=== PATIENT | male | born 1980 ===

== ENCOUNTER 2016-12-19 15:19 | Inpatient (IN) | payer OTHER, SELFPAY ==
[2016-12-19] MEDS ORDERED: Sodium Chloride 0.9% 1,000 ML IV STA (15:31)
--- NOTE | 2016-12-19 15:35 | ED PDOC ---
HPI: Abdomen Time Seen by Provider: 12/19/16 15:27 Chief Complaint (Nursing): Abdominal Pain Chief Complaint (Provider): Right Lower Quadrant Abdominal Pain History Per: Patient History/Exam Limitations: no limitations Onset/Duration Of Symptoms: Days (x4 days) Outside of [place] travel?: No Current Symptoms Are (Timing): Still Present Location Of Pain/Discomfort: RLQ Quality Of Discomfort: "Pain" Associated Symptoms: Nausea. denies: Fever, Vomiting, Urinary Symptoms Additional Complaint(s): Magdiel Chinchilla, a 36 year old male, presents to the ED complaining of right lower quadrant abdominal pain associated with nausea x4 days. Denies vomiting, fever, urinary symptoms. PMD: Ravi Richardson Past Medical History Reviewed: Historical Data, Nursing Documentation, Vital Signs Vital Signs: Last Vital Signs Temp 98.2 F 12/19/16 15:23 Pulse 77 12/19/16 15:23 Resp 16 12/19/16 15:23 BP 117/64 12/19/16 15:23 Pulse Ox 98 12/19/16 15:40 - Medical History PMH: No Chronic Diseases - Family History Family History: States: Unknown Family Hx - Immunization History Hx Tetanus Toxoid Vaccination: No Hx Influenza Vaccination: No Hx Pneumococcal Vaccination: No - Home Medications Home Medications: Ambulatory Orders Medication Instructions Recorded oxyCODONE/Acetaminophen [Percocet 1 tab PO QID PRN #10 tab 07/09/14 5/325 mg Tab] Cyclobenzaprine [Cyclobenzaprine 10 mg PO TID #30 tab 01/15/16 HCl] Ibuprofen [Motrin] 600 mg PO Q8 #30 tab 01/15/16 Docusate [Colace] 100 mg PO BID #60 cap 01/22/16 Magnesium Citrate [Good Neighbor 300 ml PO ONCE PRN #1 bottle 01/22/16 Pharmacy Magnesium Citrate] Dicyclomine [Bentyl] 10 mg PO QID PRN #10 cap 02/01/16 Famotidine [Pepcid] 20 mg PO DAILY #20 tab 02/01/16 Docusate [Colace] 100 mg PO BID #14 cap 12/15/16 Naproxen [Naprosyn] 1 tab PO BID PRN #20 tab 12/15/16 - Allergies Allergies/Adverse Reactions: Allergies Allergy/AdvReac Type Severity Reaction Status Date / Time lidocaine Allergy Severe RASH Verified 01/22/16 18:43 Review of Systems ROS Statement: Except As Marked, All Systems Reviewed And Found Negative Constitutional: Negative for: Fever Gastrointestinal: Positive for: Nausea, Abdominal Pain (right lower quadrant abdominal pain). Negative for: Vomiting Genitourinary Male: Negative for: Dysuria, Frequency, Incontinence, Hematuria Physical Exam - Reviewed Nursing Documentation Reviewed: Yes Vital Signs Reviewed: Yes - Physical Exam Appears: Positive for: Non-toxic, No Acute Distress Head Exam: Positive for: ATRAUMATIC, NORMAL INSPECTION, NORMOCEPHALIC Skin: Positive for: Normal Color, Warm, Dry Eye Exam: Positive for: Normal appearance, EOMI, PERRL ENT: Positive for: Normal ENT Inspection Neck: Positive for: Normal, Painless ROM, Supple Cardiovascular/Chest: Positive for: Regular Rate, Rhythm, Chest Non Tender. Negative for: Tachycardia Respiratory: Positive for: Normal Breath Sounds. Negative for: Wheezing, Respiratory Distress Gastrointestinal/Abdominal: Positive for: Bowel Sounds, Soft, Tenderness (right lower quadrant tenderness), Guarding. Negative for: Mass, Rebound Back: Positive for: Normal Inspection. Negative for: L CVA Tenderness, R CVA Tenderness Extremity: Positive for: Normal ROM. Negative for: Tenderness, Deformity, Swelling Neurologic/Psych: Positive for: Alert, Oriented, Gait. Negative for: Motor/ Sensory Deficits - Laboratory Results Result Diagrams: 12/19/16 16:00 12/19/16 16:00 - ECG O2 Sat by Pulse Oximetry: 98 (RA) Pulse Ox Interpretation: Normal Medical Decision Making Medical Decision Makin Initial Impression: 36 year old male presenting with right lower quadrant abdominal pain Initial Plan: * CT ABD&PELV * Comp Metabolic Panel * Udip * CBC * NS 1000mls IV 100mls/hr * Toradol 30mg IVP * Zofran 4mg IVP * Reevaluation Scribe Attestation: Documented by Mellissa Rangel acting as a scribe for Ramsey Petersen MD. Scribe Attestation: All medical record entries made by the Scribe were at my direction and personally dictated by me. I have reviewed the chart and agree that the record accurately reflects my personal performance of the history, physical exam, medical decision making, and the department course for this patient. I have also personally directed, reviewed, and agree with the discharge instructions and disposition. Disposition - Clinical Impression Clinical Impression: Appendicitis - Patient ED Disposition Is Patient to be Admitted: Yes - Disposition Disposition Time: 17:52 Condition: FAIR Forms: [employer] (Surinamese) - Pt Status Changed To: Hospital Disposition Of: Inpatient - Admit Certification Admit to Inpatient:: After my assessment, the patient will require hospitalization for at least two midnights. This is because of the severity of symptoms shown, intensity of services needed, and/or the medical risk in this patient being treated as an outpatient. - POA Present On Arrival: None
[2016-12-19 16:24] LABS: BASO % 0.4 % (0.0-2.0); EOS # 0.1 K/uL (0.0-0.7); EOS % 1.7 % (0.0-4.0); HEMOGLOBIN 13.2 g/dL (12.0-18.0); LYMPH # 2.7 K/uL (1.0-4.3); MEAN CELL VOLUME 84.6 fl (80.0-94.0); MEAN CORPUSCULAR HEMOGLOBIN 28.6 pg (27.0-31.0); MEAN CORPUSCULAR HGB CONC 33.7 g/dL (33.0-37.0); MEAN PLATELET VOLUME 9.4 fl (7.2-11.7); MONO # 0.3 K/uL (0.0-0.8); MONO % 5.7 % (0.0-10.0); NEUT # 2.8 K/uL (1.8-7.0); NEUT % 46.2 % (50.0-75.0); NRBC % 0.1 % (0.0-0.0); RBC 4.63 Mil/uL (4.40-5.90); RED CELL DISTRIBUTION WIDTH 13.6 % (11.5-14.5)
[2016-12-19] MEDS ORDERED: Sodium Chloride 0.9% 50 ML IV ONE (16:35)
[2016-12-19] MEDS ORDERED: Iohexol 300 100 ML IJ ONE (16:35)
[2016-12-19 16:36] LABS: ALB/GLOB RATIO 1.5 (1.0-2.1); ALBUMIN 4.3 g/dL (3.5-5.0); ALT/SGPT 33 U/L (21-72); AST/SGOT 26 U/L (17-59); BLOOD UREA NITROGEN 25 mg/dl (9-20); CALCIUM 9.4 mg/dL (8.4-10.2); GFR AFRICAN-AMERICAN > 60; GFR NON-AFRICAN AMERICAN > 60
--- NOTE | 2016-12-19 17:55 | CT ---
PROCEDURE: CT Abdomen and Pelvis with contrast HISTORY: Right lower quadrant pain several days duration. COMPARISON: 02/25/2016 MRI abdomen. Summary of findings on the comparison examination:2.1 x 1.9 cm mass in the lateral segment of the left hepatic lobe, showing enhancement characteristics suspicious for hepatocellular malignancy 02/01/2016 CT abdomen and pelvis TECHNIQUE: Contrast dose: 95 cc Omnipaque 300 Radiation dose: Total exam DLP = 755.09 mGy-cm. This CT exam was performed using one or more of the following dose reduction techniques: Automated exposure control, adjustment of the mA and/or kV according to patient size, and/or use of iterative reconstruction technique. FINDINGS: LOWER THORAX: Unremarkable. LIVER: Hepatic steatosis. Contrast-enhancing focus in the left hepatic lobe barely seen on the current study likely hypervascular lesion/ flash hemangioma. No interval change compared to the prior study. . No intrahepatic bile duct dilatation or perihepatic ascites. GALLBLADDER AND BILE DUCTS: Unremarkable. PANCREAS: Unremarkable. No gross lesion or ductal dilatation. SPLEEN: Unremarkable. ADRENALS: Unremarkable. No mass. KIDNEYS AND URETERS: Unremarkable. No hydronephrosis. No solid mass. VASCULATURE: Unremarkable. No aortic aneurysm. BOWEL: Unremarkable. No obstruction. No gross mural thickening. Diverticulosis without an acute inflammatory component or other associated pathologic process. APPENDIX: Slightly edematous appendix with trace periappendiceal inflammatory change consistent with early/acute appendicitis. No evidence of free air, loculated air or drainable collection. PERITONEUM: Unremarkable. No free fluid. No free air. LYMPH NODES: Unremarkable. No enlarged lymph nodes. BLADDER: Unremarkable. REPRODUCTIVE: Unremarkable. BONES: No acute fracture. OTHER FINDINGS: None. IMPRESSION: Acute appendicitis. Additional benign and/or incidental findings described above. Study completed 17:01 Results conveyed verbally at 17:49. Interpretation finalized and available for review 17:53.
--- NOTE | 2016-12-19 18:29 | RAD ---
HISTORY: preop COMPARISON: No prior. TECHNIQUE: Chest PA and lateral FINDINGS: LUNGS: No active pulmonary disease. PLEURA: No significant pleural effusion identified. No pneumothorax apparent. CARDIOVASCULAR: Normal. OSSEOUS STRUCTURES: No significant abnormalities. VISUALIZED UPPER ABDOMEN: Normal. OTHER FINDINGS: None. IMPRESSION: No active disease.
[2016-12-19 18:37] LABS: INR 1.2 (0.9-1.2); PROTHROMBIN TIME 12.8 Seconds (9.8-13.1)
--- NOTE | 2016-12-19 19:07 | CP.PCM.HP ---
History of Present Illness - History of Present Illness History of Present Illness: Surgery: Dr. Pennington CC: Abd pain HPI: 36M w. no significant PMH presents to ED w. RLQ abd pain x 3 days. Pain is constant, and waxes/wanes in severity. Pain is aggravated by food. No alleviating factors. Pt reports nausea, no vomiting. Denies diarrhea. Had fever on first day of symptoms. Currently no F/C. Pt denies FAITH/blurred vision. No CP/ palpitations, +SOB when pain worsens, no cough, no hematuria/dysuria. CT done in ED had findings consisted w. appendicitis. PMH: none PSH: R wrist Meds: none ALL: Lidocaine> anaphylaxis occurred during dental procedure Social: No ETOH/tobacco/drugs Fhx: non-contributory Present on Admission - Present on Admission Any Indicators Present on Admission: No Review of Systems - Review of Systems All systems: reviewed and no additional remarkable complaints except (HPI) Past Patient History - Infectious Disease Hx of Infectious Diseases: None - Past Social History Smoking Status: Never Smoked - CARDIAC Hx Cardiac Disorders: No - PULMONARY Hx Respiratory Disorders: No - NEUROLOGICAL Hx Neurological Disorder: No - HEENT Hx HEENT Problems: No - RENAL Hx Chronic Kidney Disease: No - ENDOCRINE/METABOLIC Hx Endocrine Disorders: No - HEMATOLOGICAL/ONCOLOGICAL Hx Blood Disorders: No - INTEGUMENTARY Hx Dermatological Problems: No - MUSCULOSKELETAL/RHEUMATOLOGICAL Hx Musculoskeletal Disorders: No - GASTROINTESTINAL Hx Gastrointestinal Disorders: No - GENITOURINARY/GYNECOLOGICAL Hx Genitourinary Disorders: No - PSYCHIATRIC Hx Psychophysiologic Disorder: No Hx Substance Use: No - SURGICAL HISTORY Hx Surgeries: Yes Hx Orthopedic Surgery: Yes (RIGHT WRIST x2 tendon repair) - ANESTHESIA Hx Anesthesia: Yes Hx Anesthesia Reactions: No Hx Malignant Hyperthermia: No Meds Allergies/Adverse Reactions: Allergies Allergy/AdvReac Type Severity Reaction Status Date / Time lidocaine Allergy Severe RASH Verified 01/22/16 18:43 Physical Exam - Constitutional Appears: Non-toxic, No Acute Distress - Head Exam Head Exam: ATRAUMATIC, NORMOCEPHALIC - Eye Exam Eye Exam: EOMI. absent: Scleral icterus Pupil Exam: PERRL - ENT Exam ENT Exam: Mucous Membranes Moist, Normal External Ear Exam - Neck Exam Neck exam: Positive for: Full Rom - Respiratory Exam Respiratory Exam: NORMAL BREATHING PATTERN. absent: Accessory Muscle Use, Respiratory Distress - Cardiovascular Exam Cardiovascular Exam: RRR - GI/Abdominal Exam GI & Abdominal Exam: Rebound (+Rovsing), Soft, Tenderness (RLQ, +obturator, + psoas). absent: Distended, Firm, Guarding, Hernia, Rigid - Extremities Exam Extremities exam: Negative for: calf tenderness, pedal edema - Back Exam Back exam: absent: CVA tenderness (L), CVA tenderness (R) - Neurological Exam Neurological exam: Alert, Oriented x3 - Psychiatric Exam Psychiatric exam: Normal Affect, Normal Mood - Skin Skin Exam: Dry, Normal Color, Warm Results - Vital Signs Recent Vital Signs: Last Vital Signs Temp 98.4 F 12/19/16 18:02 Pulse 73 12/19/16 18:02 Resp 18 12/19/16 18:02 BP 120/66 12/19/16 18:02 Pulse Ox 96 12/19/16 18:02 - Labs Result Diagrams: 12/19/16 16:00 12/19/16 16:00 Labs: Laboratory Results - last 24 hr 12/19/16 18:09 PT 12.8 INR 1.2 - Imaging and Cardiology CT scan - abdomen Status: Image reviewed by me, Report reviewed by me Assessment & Plan - Assessment and Plan (Free Text) Assessment: 36M w. appendicitis -OR tomorrow for lap appy, consent in chart risks and benefits d/w pt -CLD, NPO at midnight -IVF -zosyn -dilaudid -zofran -case d/w attending Esmeitis PGY3
[2016-12-19] MEDS: Sodium Chloride 0.9% 1,000 ML IV SCH (19:27)
[2016-12-19] MEDS: Piperacillin/Tazobact 3.375 GM in Sodium Chloride 0.9% 100 ML IVPB SCH (21:25)
[2016-12-20] MEDS: Sodium Chloride 0.9% 1,000 ML IV SCH ×3 (04:00→16:21)
[2016-12-20] MEDS: Piperacillin/Tazobact 3.375 GM in Sodium Chloride 0.9% 100 ML IVPB SCH ×4 (04:30→21:37)
[2016-12-20 06:29] LABS: HEMOGLOBIN 13.5 g/dL (12.0-18.0); MEAN CELL VOLUME 85.8 fl (80.0-94.0); MEAN CORPUSCULAR HEMOGLOBIN 28.7 pg (27.0-31.0); MEAN CORPUSCULAR HGB CONC 33.5 g/dL (33.0-37.0); RBC 4.69 Mil/uL (4.40-5.90); RED CELL DISTRIBUTION WIDTH 13.8 % (11.5-14.5); WHITE BLOOD COUNT 8.7 K/uL (4.8-10.8)
[2016-12-20 06:34] LABS: BLOOD UREA NITROGEN 26 mg/dl (9-20); CALCIUM 8.7 mg/dL (8.4-10.2); GFR AFRICAN-AMERICAN > 60; GFR NON-AFRICAN AMERICAN > 60
--- NOTE | 2016-12-20 08:03 | CARD ---
APPROVED REPORT EKG Measurement Heart [id number] <Conclusion> Normal sinus rhythm Normal ECG
[2016-12-20] MEDS ORDERED: Succinylcholine 200 mg/10 ml Inj IV ONE (10:25)
[2016-12-20] MEDS ORDERED: Propofol 10 mg/ml Inj (20 ML) ONE (10:25)
[2016-12-20] MEDS ORDERED: Rocuronium 10 mg/ml (5 ml) ONE (10:25)
[2016-12-20] MEDS ORDERED: Neostigmine Methylsulfate 3mg/3ml Syringe IV ONE (10:26)
[2016-12-20] MEDS ORDERED: Bupivacaine 0.5% Inj(30mL) ONE (11:15)
[2016-12-20] MEDS ORDERED: Lactated Ringer's 1,000 ML IV ONE ×2 (11:22→12:34)
[2016-12-20] MEDS ORDERED: Oxycodone/Acetaminophen 5/325 mg Tab PO PRN (12:37)
--- NOTE | 2016-12-20 12:37 | PCM.SURG1 ---
Surgeon's Initial Post Op Note - Surgeon's Notes Surgeon: Dr. Pennington Meat Smoker: Luiz PGY3, Mandy Avila PGY2 Type of Anesthesia: General Endo Pre-Operative Diagnosis: Acute appendicitis Operative Findings: Appendicitis Post-Operative Diagnosis: Same Operation Performed: Laparoscopic appendectomy Specimen/Specimens Removed: appendix Estimated Blood Loss: EBL {In ML}: 10 Blood Products Given: N/A Drains Used: No Drains Post-Op Condition: Good Date of Surgery/Procedure: 12/20/16 Time of Surgery/Procedure: 12:36
[2016-12-20] MEDS: Lactated Ringer's 1,000 ML IV SCH ×2 (12:41→21:37)
[2016-12-20] MEDS: HYDROmorphone 0.5 mg/0.5 ml ISec IVP PRN ×4 (13:15→13:55)
--- NOTE | 2016-12-20 23:47 | OP ---
PROCEDURE DATE: 12/20/2016 SURGEON: Dr. Pennington. ASSISTANTS: Dr. Avila and Dr. Dee. TYPE OF ANESTHESIA: General. ANESTHESIA ADMINISTERED BY: Dr. Meneses. PREOPERATIVE DIAGNOSIS: Acute appendicitis. POSTOPERATIVE DIAGNOSIS: Acute appendicitis. PROCEDURE: Laparoscopic appendectomy. DESCRIPTION OF PROCEDURE: With the patient in the supine position under adequate general anesthesia, the abdomen was prepped and draped in the usual sterile manner. A Veress needle puncture was performed at the umbilicus with inflation to 15 cm water pressure of CO2 and a 10 mL laparoscopic trocar was inserted via an infraumbilical incision. Under direct vision, 5 and 12 mm trocars were inserted in the left lower quadrant and suprapubic region and the appendix was identified. The appendix was markedly elongated and appeared dilated with some induration that appear to be acute inflammation near the proximal portion of the appendix closed to the junction with the cecum. The appendix was elevated and the mesoappendix wad dissected. The mesoappendix was divided with an endo-PARTH stapler. The area of the appendiceal artery was reinforced with hemoclips. The appendix itself was then divided using a second pass of the endo-PARTH stapler, which was applied proximal to the inflamed area at the appendiceal junction with the cecum and the stump was examined for hemostasis. The appendix was placed in a specimen retrieval bag and removed via the 12 mm port site. The pneumoperitoneum was released and the trocars were removed. The umbilical and 12 mm port sites were closed with fascial sutures of 0 Vicryl. All incisions were closed with 4-0 Monocryl subcuticular sutures and Steri-Strips. Dry sterile dressings were applied. The patient tolerated the procedure well and transferred to recovery room in stable condition. ESTIMATED BLOOD LOSS FOR THE PROCEDURE: 10 mL. Jessica Pennington MD
[2016-12-21 00:36] VITALS: RESP 20
[2016-12-21] MEDS: Piperacillin/Tazobact 3.375 GM in Sodium Chloride 0.9% 100 ML IVPB SCH ×2 (04:31→09:09)
[2016-12-21] MEDS: Lactated Ringer's 1,000 ML IV SCH ×2 (04:45→13:12)
--- NOTE | 2016-12-21 07:18 | CP.PCM.DIS ---
Provider - Provider Date of Admission: 12/19/16 17:58 Attending physician: Jessica Pennington MD Time Spent in preparation of Discharge (in minutes): 45 Hospital Course - Lab Results Lab Results: Most Recent Lab Values WBC 8.7 K/uL (4.8-10.8) 12/20/16 05:45 RBC 4.69 Mil/uL (4.40-5.90) 12/20/16 05:45 Hgb 13.5 g/dL (12.0-18.0) 12/20/16 05:45 Hct 40.2 % (35.0-51.0) 12/20/16 05:45 MCV 85.8 fl (80.0-94.0) 12/20/16 05:45 MCH 28.7 pg (27.0-31.0) 12/20/16 05:45 MCHC 33.5 g/dL (33.0-37.0) 12/20/16 05:45 RDW 13.8 % (11.5-14.5) 12/20/16 05:45 Plt Count 179 K/uL (130-400) 12/20/16 05:45 MPV 9.4 fl (7.2-11.7) 12/19/16 16:00 Neut % (Auto) 46.2 % (50.0-75.0) L 12/19/16 16:00 Lymph % (Auto) 46.0 % (20.0-40.0) H 12/19/16 16:00 [place] % (Auto) 5.7 % (0.0-10.0) 12/19/16 16:00 Eos % (Auto) 1.7 % (0.0-4.0) 12/19/16 16:00 Baso % (Auto) 0.4 % (0.0-2.0) 12/19/16 16:00 Neut # 2.8 K/uL (1.8-7.0) 12/19/16 16:00 Lymph # 2.7 K/uL (1.0-4.3) 12/19/16 16:00 [place] # 0.3 K/uL (0.0-0.8) 12/19/16 16:00 Eos # 0.1 K/uL (0.0-0.7) 12/19/16 16:00 Baso # 0.0 K/uL (0.0-0.2) 12/19/16 16:00 PT 12.8 Seconds (9.8-13.1) 12/19/16 18:09 INR 1.2 (0.9-1.2) 12/19/16 18:09 Sodium 141 mmol/l (132-148) 12/20/16 05:45 Potassium 4.5 MMOL/L (3.6-5.0) 12/20/16 05:45 Chloride 106 mmol/L (98-107) 12/20/16 05:45 Carbon Dioxide 25 mmol/L (22-30) 12/20/16 05:45 Anion Gap 15 (10-20) 12/20/16 05:45 BUN 26 mg/dl (9-20) H 12/20/16 05:45 Creatinine 1.0 mg/dL (0.8-1.5) 12/20/16 05:45 Est GFR ( Amer) > 60 12/20/16 05:45 Est GFR (Non-Af Amer) > 60 12/20/16 05:45 Random Glucose 101 mg/dL (75-110) 12/20/16 05:45 Calcium 8.7 mg/dL (8.4-10.2) 12/20/16 05:45 Total Bilirubin 0.5 mg/dl (0.2-1.3) 12/19/16 16:00 AST 26 U/L (17-59) 12/19/16 16:00 ALT 33 U/L (21-72) 12/19/16 16:00 Alkaline Phosphatase 56 U/L (38-126) 12/19/16 16:00 Total Protein 7.2 G/DL (6.3-8.2) 12/19/16 16:00 Albumin 4.3 g/dL (3.5-5.0) 12/19/16 16:00 Globulin 2.9 gm/dL (2.2-3.9) 12/19/16 16:00 Albumin/Globulin Ratio 1.5 (1.0-2.1) 12/19/16 16:00 - Hospital Course Hospital Course: 36M w. no significant PMH presents to ED w. RLQ abd pain x 3 days. Pain is constant, and waxes/wanes in severity. Pain is aggravated by food. No alleviating factors. Pt reports nausea, no vomiting. Denies diarrhea. Had fever on first day of symptoms. Currently no F/C. Pt denies FAITH/blurred vision. No CP/ palpitations, +SOB when pain worsens, no cough, no hematuria/dysuria. CT done in ED had findings consisted w. appendicitis. Pt had no leukocytosis. Pt underwent lap appendectomy. Pt tolerated it well. Pain controlled. Tolerated diet. Ambulated and voided. Pt is cleared to go home. Discharge Exam - Head Exam Head Exam: ATRAUMATIC, NORMOCEPHALIC - Eye Exam Eye Exam: EOMI, Normal appearance, PERRL Pupil Exam: NORMAL ACCOMODATION, PERRL - Respiratory Exam Respiratory Exam: Clear to PA & Lateral, NORMAL BREATHING PATTERN - Cardiovascular Exam Cardiovascular Exam: REGULAR RHYTHM - GI/Abdominal Exam GI & Abdominal Exam: Soft, Tenderness. absent: Distended, Firm, Guarding, Hernia, Rigid Additional comments: Incision C/D/I. TTP - Exam Exam: NORMAL INSPECTION - Extremities Exam Extremities exam: full ROM - Neurological Exam Neurological exam: Alert, CN II-XII Intact, Normal Gait, Oriented x3, Reflexes Normal - Psychiatric Exam Psychiatric exam: Normal Affect, Normal Mood - Skin Skin Exam: Dry, Intact, Normal Color, Warm Discharge Plan - Follow Up Plan Condition: GOOD Disposition: HOME/ ROUTINE Instructions: Laparoscopic Appendectomy (DC) Referrals: Jessica Pennington MD [Staff Provider] -
[2016-12-21 07:24] VITALS: BP 112/70; PULSE 68; TEMP 99.1; O2SAT 96
[2016-12-21 07:32] LABS: HEMOGLOBIN 12.6 g/dL (12.0-18.0); MEAN CELL VOLUME 84.7 fl (80.0-94.0); MEAN CORPUSCULAR HGB CONC 34.2 g/dL (33.0-37.0); RBC 4.33 Mil/uL (4.40-5.90); RED CELL DISTRIBUTION WIDTH 13.9 % (11.5-14.5); WHITE BLOOD COUNT 8.4 K/uL (4.8-10.8)
== END 2016-12-21 13:38 | disposition home or self-care (01) | DRG 343 ==
LOC: H.ER 15:19 → H.ERHOLD 17:58 → H.MEDSURG1 18:43
PROVIDERS: ADMIT Specialist; ATTEND Specialist
PROC: 0DTJ4ZZ Resection of Appendix, Percutaneous Endoscopic Approach (ICD-10-PCS; principal; 2016-12-20 11:00)
DX: K35.80 Unspecified acute appendicitis (principal); Z88.4 Allergy status to anesthetic agent

== ENCOUNTER 2017-05-15 09:52 | Emergency (ER) | payer OTHER, SELFPAY ==
[2017-05-15 09:56] VITALS: BP 128/65; PULSE 70; TEMP 98; O2SAT 99
[2017-05-15 09:57] VITALS: BMI 29.6
--- NOTE | 2017-05-15 10:16 | ED PDOC ---
HPI: Back Time Seen by Provider: 05/15/17 10:04 Chief Complaint (Nursing): Back Pain History Per: Patient Onset/Duration Of Symptoms: Days (2) Quality Of Discomfort: Aching Severity: Mild Pain Scale Rating Of: 2 Previous Symptoms: Back Pain Associated Symptoms: None Exacerbating Factor(s): Nothing Additional Complaint(s): Right flank pain x 2 days. No NVD. Noticed ?blood in urine yesterday. No fever. No trauma. H/o kidney stones, feels similar. Past Medical History Vital Signs: Last Vital Signs Temp 98 F 05/15/17 09:56 Pulse 70 05/15/17 09:56 Resp BP 128/65 05/15/17 09:56 Pulse Ox 99 05/15/17 09:56 - Medical History PMH: Kidney Stones Denies: Chronic Kidney Disease - Surgical History Surgical History: Appendectomy - Family History Family History: States: Unknown Family Hx - Immunization History Hx Tetanus Toxoid Vaccination: No Hx Influenza Vaccination: No Hx Pneumococcal Vaccination: No - Home Medications Home Medications: Ambulatory Orders Medication Instructions Recorded Ciprofloxacin HCl [Cipro] 500 mg PO BID #20 tab 05/15/17 traMADol [Ultram] 50 mg PO Q8 #10 tab 05/15/17 - Allergies Allergies/Adverse Reactions: Allergies Allergy/AdvReac Type Severity Reaction Status Date / Time lidocaine Allergy Severe RASH Verified 01/22/16 18:43 Review of Systems Constitutional: Negative for: Fever Gastrointestinal: Negative for: Nausea, Vomiting, Abdominal Pain, Diarrhea Genitourinary Male: Positive for: Hematuria Musculoskeletal: Positive for: Back Pain Physical Exam - Physical Exam Appears: Positive for: Non-toxic, No Acute Distress Skin: Positive for: Normal Color, Warm, DRY Gastrointestinal/Abdominal: Positive for: Bowel Sounds, Soft. Negative for: Tenderness Back: Positive for: Normal Inspection. Negative for: L CVA Tenderness, R CVA Tenderness, Vertebral Tenderness Neurologic/Psych: Positive for: Alert, Oriented - ECG O2 Sat by Pulse Oximetry: 99 Disposition - Clinical Impression Clinical Impression: Back pain, Hematuria - Patient ED Disposition Is Patient to be Admitted: No Counseled Patient/Family Regarding: Studies Performed, Diagnosis, Need For Followup, Rx Given - Disposition Referrals: Ramses Sloan Jr., MD [Staff Provider] - Disposition: Routine/Home Disposition Time: 11:50 Condition: FAIR Prescriptions: Ciprofloxacin HCl [Cipro] 500 mg PO BID #20 tab traMADol [Ultram] 50 mg PO Q8 #10 tab Instructions: Acute Hematuria (ED) Forms: [employer] (Portuguese)
--- NOTE | 2017-05-15 11:35 | CT ---
PROCEDURE: CT Abdomen and Pelvis without Oral or IV contrast. HISTORY: r/o kidney stone COMPARISON: CT abdomen and pelvis with contrast performed 12/19/16 TECHNIQUE: Contiguous axial images of the abdomen and pelvis. No oral or IV contrast administered. Coronal and Sagittal reformats generated. Radiation dose: Total exam DLP = 924.75 mGy-cm. This CT exam was performed using one or more of the following dose reduction techniques: Automated exposure control, adjustment of the mA and/or kV according to patient size, and/or use of iterative reconstruction technique. FINDINGS: There is limited evaluation of the solid organs without the administration of IV contrast. LOWER THORAX: No visible consolidation, pleural effusion, or pneumothorax. LIVER: Unremarkable unenhanced appearance. GALLBLADDER AND BILE DUCTS: Unremarkable unenhanced appearance. PANCREAS: Unremarkable unenhanced appearance. SPLEEN: Unremarkable unenhanced appearance. ADRENALS: Unremarkable unenhanced appearance. KIDNEYS AND URETERS: No hydronephrosis or obstructing renal calculus. BLADDER: The urinary bladder appears unremarkable. REPRODUCTIVE: Unremarkable. APPENDIX: Not visualized. Surgical changes in this region suggests appendectomy. Correlate clinically. BOWEL: The stomach is nondistended. Lack of oral contrast limits evaluation for bowel pathology. The bowel loops appear within normal limits of caliber without evidence of intestinal obstruction. Diverticulosis without CT evidence of acute diverticulitis. PERITONEUM: No significant free fluid. No definite free air. LYMPH NODES: No bulky lymphadenopathy identified. VASCULATURE: No aortic aneurysm. BONES: No acute osseous abnormality is detected. OTHER FINDINGS: None. IMPRESSION: No hydronephrosis or obstructing calculus identified. Additional incidental findings as above.
== END 2017-05-15 12:32 | disposition home or self-care (01) ==
LOC: H.ER 09:52
DX: R31.9 Hematuria, unspecified (principal)